=== PATIENT | female | born 1955 | race Caucasian/White ===

== ENCOUNTER 2025-08-03 10:07 | Outpatient (AMB) | payer BC, SELFPAY ==
--- NOTE | 2025-08-03 10:26 | MHC.PC.OV ---
Vital Signs 08/03/25 10:27 08/03/25 10:40 Height 5 ft 4.02 in Weight 163 lb 4 oz BMI 28.0 BP 148/68 H 160/68 H Blood Pressure Location Rt brachial Rt brachial Position Sitting Sitting Respiration 14 Pulse 103 H Pulse Source Pulse Oximeter Temp 98.3 F Temp Source Oral Pulse Oximetry (%) 97 Oxygen Delivery Method Room Air Intake Visit Reasons: ESTHETICIAN MAKEUP ARTIST-CPE Intake Note: New patient visit Joint Cutter Required: No Allergies No Known Allergies Allergy (Verified 08/03/25 10:27) Medication List - Last Reconciled 08/03/25 by Lori Babin PA-C cetirizine (Zyrtec) 10 mg PO DAILY metronidazole 1% (Metrogel) 1 appl topical DAILY multivitamin 1 tab PO DAILY Tobacco use date assessed: 08/03/25 Fall risk assessment: No Falls in past year Last assessed Fall Risk: 08/03/25 Dental Screening Dental Screen Date: 08/03/25 Did you have a dental visit in the last 12 months?: Yes Did you have a dental problem in the last 6 months where you did not have access to dental care?: No Was dental information given to patient?: Patient has dentist HPI ESTHETICIAN MAKEUP ARTIST-CPE HPI Details Pt is a 70 y/o female who presents today to establish care. She states she has not had health care in many, many years. States over 10 years. She did make a list of numerous concerns today to review HEENT: Reports a ringing in her ears that has been present for at least 10 years. No significant change. She would like to see someone for this. -reports that her eyes are watery at times. Wonders if it is related to allergies. States that she has a cat in that it has seemed to start around the time as the cat. Derm: Has a dry, flaky scalp and sometimes raised lesions. She uses selsun blue prn and uses it every 4-5 month. -She notices that her external ears are itchy and dry at times. -reports a lump on her left upper back. Noticed it about 3 months ago. Not sure if it has changed in size. She would like this removed. It is nontender. -history of rosacea and would like to see Dermatology for this -for many years she has noticed that her hair is thinning. No bald spots are scalp tenderness. Does not use heat products or chemicals Uro: States that for the last year so she has noticed sometimes she feels that she has to use the bathroom right away or may accidentally urinate herself. She states that she feels the urge and sometimes if she is not quick enough there is some mild incontinence. She tries to talk herself out of this. Has not noticed any dysuria or blood in the urine. No abdominal pain or flank pain. Did have a vaginal delivery in the past. She has not noticed any prolapses. CV: Blood pressure today in the office is 160/68. She states that when she is at the dentist or a place that she is less stressed out it seems to be normal. MSK: Reports feeling very stiff, tight and achy throughout her neck, mid back and low back. No radiation into the extremities. There was no trauma. This has been longstanding for many years but 1 of her main concerns today. States that she has a lot of muscle tension. She has not tried anything for this. There has been no trauma. No joint swelling or erythema. Mammo: overdue by 10 years ago Colonoscopy: over Pap: overdue Bone density: never had [facility] Surgical History (Updated 08/03/25 @ 10:42 by Betty Tejada CMA) History of cholecystectomy Social History (Updated 08/03/25 @ 10:43 by Betty Tejada CMA) Housing: Condominium Alcohol intake: current Patient Tobacco Use Status: Never used Tobacco e-Cigarette/Vaping Use: Never Used Second Hand Smoke Exposure: Yes (past) service: No Current occupational status: retired Current occupational exposures/hazards: No Cognitive needs: No Hearing needs: No Vision needs: Yes (glasses) Questionnaire PHQ-9 Over the last 2 weeks, how often have you been bothered by any of the following problems? 1. Little interest or pleasure in doing things: not at all 2. Feeling down, depressed, or hopeless: not at all 3. Trouble falling or staying asleep, or sleeping too much: not at all 4. Feeling tired or having little energy: not at all 5. Poor appetite or overeating: not at all 6. Feeling bad about yourself - or that you are a failure or have let yourself or your family down: not at all 7. Trouble concentrating on things, such as reading the newspaper or watching television: not at all 8. Moving or speaking so slowly that other people could have noticed. Or the opposite - being so fidgety or restless that you have been moving around a lot more than usual: not at all 9. Thoughts that you would be better off or of hurting yourself in some way: not at all Total score: 0 Depression Screening Interpretation: Negative Depression Screening Done: Yes 42276 - PHQ-9 Billing: Yes Source: Developed by Drs. Sky Faulkner, Gina Manzano, Cole Bonner and colleagues, with an educational alia from [employer]. Thrive Questionnaire Date Thrive assessed: 07/31/25 I am a: Patient What is your living situation today?: I have a steady place to live Within the past 12 months, did the food you bought not last and you didn't have the money to get more?: Never true Within the past 12 months, did you worry whether your food would run out before you got money to buy more?: Never true Do you have trouble paying for medicines?: No Do you have trouble getting transportation to medical appointments?: No Do you have trouble paying your heating and electricity bill?: No Do you have trouble taking care of your child, family member or friend?: No Do you have trouble with day-to-day activities such as bathing, preparing meals, shopping, managing finances, etc.?: No Are you currently unemployed and looking for a job?: No Are you interested in more education?: No Please select the resources that you would like help with: None Currently or been in a relationship where the following occur: No concerns reported THRIVE Score: 0 AUDIT C Alcohol Use Questionnaire (AUDIT-C) 1. How often do you have a drink containing alcohol?: 2-4 times a month 2. How many drinks containing alcohol do you have on a typical day when you are drinking?: 1 or 2 3. How often do you have six or more drinks on one occasion?: Never Total Score: 2 DAWIT-7 AMB Questionnaire DAWIT-7 Date DAWIT - 7 assessed: 08/03/25 Feeling nervous, anxious, or on edge: 3 = Nearly every day Not being able to stop or control worryin = Not at all Worrying too much about different things: 0 = Not at all Trouble relaxin = Nearly every day Being so restless that it is hard to sit still: 0 = Not at all Becoming easily annoyed or irritable: 0 = Not at all Feeling afraid as if something awful might happen: 0 = Not at all Total DAWIT-7 score (0-4 normal; 5-9 mild; 10-14 moderate; 15-21 severe): 6 Source: Developed by Drs. Sky Faulkner, Gina Manzano, Cole Bonner and colleagues, with an educational alia from [employer]. DAWIT-7 Assessment Billing DAWIT-7 Assessment Tool: DAWIT-7 Assessment 65722 Physical exam (Primary Care) Vital Signs: Last Vital Signs Temp 98.3 F 08/03/25 10:27 Pulse 103 H 08/03/25 10:27 Resp 14 08/03/25 10:27 BP 160/68 H 08/03/25 10:40 Pulse Ox 97 08/03/25 10:27 Oxygen Delivery Method Room Air 08/03/25 10:27 BMI result Body Mass Index 28.0 Tobacco/Smoking Status: Tobacco use Status Tobacco use date assessed 08/03/25 08/03/25 10:36 Patient Tobacco Use Status Never used Tobacco 08/03/25 10:43 e-Cigarette/Vaping Use Never Used 08/03/25 10:43 PHQ-9: PHQ-9 Score PHQ-9: Total score 0 08/03/25 10:49 Depression Screening Interpretation: Negative Thrive Assessment: Date of Thrive Assessment Date Thrive assessed 07/31/25 08/03/25 10:36 Currently or been in a relationship where the following occur: No concerns reported Const Orientation/consciousness: patient oriented x3 HENMT Ears: hearing grossly normal bilaterally, external ears normal (Dry flaky skin noted in the external ears) and TM's normal bilaterally General nose exam: Normal nasal mucous membranes and turbinates present Face and sinus: Yes sinuses nontender Mouth: Normal oral and palatal mucosa present Eyes General: appearance normal, both eyes and all related structures EOM: EOMs intact bilaterally Neck Thyroid: Thyroid normal Lymphatic: no lymphadenopathy noted Resp Auscultation: clear to auscultation bilaterally Cardio Rate: regular rate Rhythm: regular rhythm Heart sounds: S1 normal heart sound present and S2 normal heart sound present GI Inspection: Yes normal to inspection Palpation (GI): Soft to palpation and Other GI palpation findings present (nontender, no cva tenderness) Auscultation: normoactive bowel sounds Rectal Exam - Female: deferred Back/Spine/Pelvis Other: There is a golf ball sized firm, mobile lump noted on the left upper back. Skin General skin exam: no rashes or lesions noted Neuro General: patient oriented x3, gait normal and no focal motor deficits Coding Level of Care Code New Pt Level 5 (87759) Complex EM visit Add On G2211 Diagnoses Seborrheic dermatitis L21.9 Rosacea L71.9 Hair loss L65.9 Watery eyes H04.203 Urge incontinence of urine N39.41 Chronic neck and back pain M54.2; M54.9; G89.29 Bilateral tinnitus H93.13 Lump of skin of back R22.2 Elevated blood pressure reading without diagnosis of hypertension R03.0 Additional Codes DAWIT-7 Assessment Billing - DAWIT-7 Assessment Tool: DAWIT-7 Assessment 61302 ([id number]) PHQ-9 - 20852 - PHQ-9 Billing: Yes ([id number]) Assessment & Plan Assessment & Plan (1) Seborrheic dermatitis: Code(s): L21.9 - Seborrheic dermatitis, unspecified Category: Medical Plan: Advised to continue with Selsun blue as needed. Referral to Dermatology (2) Rosacea: Code(s): L71.9 - Rosacea, unspecified Category: Medical Plan: As above (3) Hair loss: Code(s): L65.9 - Nonscarring hair loss, unspecified Category: Medical Plan: Labs ordered today. We will follow up pending test results. I have referred her to Dermatology. (4) Watery eyes: Code(s): H04.203 - Unspecified epiphora, bilateral Category: Medical Plan: She will trial an antihistamine like Zyrtec. This was ordered for her today. 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 She does have routine eye exams (5) Urge incontinence of urine: Code(s): N39.41 - Urge incontinence Category: Medical Plan: Urine ordered Referral to urology Encouraged pelvic floor strengthening (6) Chronic neck and back pain: Code(s): M54.2 - Cervicalgia; M54.9 - Dorsalgia, unspecified; G89.29 - Other chronic pain Category: Medical Plan: Imaging of the neck and back ordered Referral to physical therapy OTC analgesics encouraged if needed I have encouraged regular stretching and massage (7) Bilateral tinnitus: Code(s): H93.13 - Tinnitus, bilateral Category: Medical Plan: Referral to ENT (8) Lump of skin of back: Code(s): R22.2 - Localized swelling, mass and lump, trunk Category: Medical Plan: Ultrasound ordered Referral to General surgery Discussed that it felt consistent with a lipoma. (9) Elevated blood pressure reading without diagnosis of hypertension: Code(s): R03.0 - Elevated blood-pressure reading, without diagnosis of hypertension Category: Medical Plan: Elevated above goal. Short term follow up ordered Plan I have ordered screening labs, testing as above and an order for a bone density, mammogram, service agent exam, colonoscopy screening I spent 75 minutes in [id number] time reviewing a list of her concerns, formulating a plan. Orders: Orders Complete Blood Count Auto Diff 08/03/25 N39.41 - Urge incontinence, R03.0 - Elevated blood-pressure reading, without diagnosis of hypertension, Z13.220 - Encounter for screening for lipoid disorders Comprehensive [place]. Panel Fast 08/03/25 N39.41 - Urge incontinence, R03.0 - Elevated blood-pressure reading, without diagnosis of hypertension, Z13.220 - Encounter for screening for lipoid disorders Microalbumin, Random (w Creat) 08/03/25 N39.41 - Urge incontinence, R03.0 - Elevated blood-pressure reading, without diagnosis of hypertension, Z13.220 - Encounter for screening for lipoid disorders XR lumbar spine 2-3V 08/03/25 M54.50 - Low back pain, unspecified XR cervical spine 3V 08/03/25 M54.2 - Cervicalgia XR thoracic spine 3V 08/03/25 M54.6 - Pain in thoracic spine MM screening mammo BI 08/03/25 G89.29 - Other chronic pain, M54.2 - Cervicalgia, M54.9 - Dorsalgia, unspecified, Z12.31 - Encounter for screening mammogram for malignant neoplasm of breast PT Evaluation and Treatment 08/03/25 G89.29 - Other chronic pain, M54.2 - Cervicalgia, M54.9 - Dorsalgia, unspecified XR DEXA axial skeleton 08/03/25 N95.1 - Menopausal and female climacteric states US chest 08/03/25 R22.2 - Localized swelling, mass and lump, trunk Lipid Panel 08/03/25 N39.41 - Urge incontinence, R03.0 - Elevated blood-pressure reading, without diagnosis of hypertension, Z13.220 - Encounter for screening for lipoid disorders Hemoglobin A1c 08/03/25 N39.41 - Urge incontinence, R03.0 - Elevated blood-pressure reading, without diagnosis of hypertension, R73.01 - Impaired fasting glucose, Z13.220 - Encounter for screening for lipoid disorders TSH reflex Free T4 08/03/25 N39.41 - Urge incontinence, R03.0 - Elevated blood-pressure reading, without diagnosis of hypertension, Z13.220 - Encounter for screening for lipoid disorders UA CC w/rflx Micro + Cult 08/03/25 N39.41 - Urge incontinence, R03.0 - Elevated blood-pressure reading, without diagnosis of hypertension, R30.0 - Dysuria, Z13.220 - Encounter for screening for lipoid disorders Referrals Dermatology Referral L21.9 - Seborrheic dermatitis, unspecified, L65.9 - Nonscarring hair loss, unspecified, L71.9 - Rosacea, unspecified, Z12.83 - Encounter for screening for malignant neoplasm of skin Urology Referral N39.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
[2025-08-03 10:27] VITALS: BP 148/68; PULSE 103; RESP 14; TEMP 36.8; O2SAT 97; BMI 28.0
[2025-08-03 10:40] VITALS: BP 160/68
== END 2025-08-03 11:22 | disposition home or self-care (01) ==
LOC: HO.HMCFM 10:08
PROVIDERS: PCP Physician Assistant; Visit Provider Physician Assistant
DX: M54.2 Cervicalgia (principal); L21.9 Seborrheic dermatitis, unspecified; L71.9 Rosacea, unspecified; L65.9 Nonscarring hair loss, unspecified; H04.203 Unspecified epiphora, bilateral; N39.41 Urge incontinence; M54.9 Dorsalgia, unspecified; G89.29 Other chronic pain; H93.13 Tinnitus, bilateral; R22.2 Localized swelling, mass and lump, trunk; R03.0 Elevated blood-pressure reading, without diagnosis of hypertension

== ENCOUNTER → 2025-08-03 10:07 | Outpatient (BNVA) | payer BC, SELFPAY | PROVIDERS: PCP Physician Assistant; Visit Provider Physician Assistant | DX: Z76.89 Persons encountering health services in other specified circumstances (principal); L21.9 Seborrheic dermatitis, unspecified; L71.9 Rosacea, unspecified; L65.9 Nonscarring hair loss, unspecified; H04.203 Unspecified epiphora, bilateral; N39.41 Urge incontinence; M54.2 Cervicalgia; M54.9 Dorsalgia, unspecified; G89.29 Other chronic pain; H93.13 Tinnitus, bilateral; R22.2 Localized swelling, mass and lump, trunk; R03.0 Elevated blood-pressure reading, without diagnosis of hypertension; Z13.31 Encounter for screening for depression; Z13.39 Encounter for screening examination for other mental health and behavioral disorders | CPT/HCPCS: 96127 ==

== ENCOUNTER 2025-08-22 09:55 | Outpatient (REF) | payer BC, SELFPAY ==
[2025-08-22 11:27] LABS: MANUAL DIFF FLAG NO
[2025-08-22 11:37] LABS: Appearance Urine Clear; Glucose Urine UA Negative (Negative); PH 7.5 (5.0-9.0); Specific Gravity - Urine <= 1.005 (1.005-1.025); UMIC TRIGGER UACC YES
[2025-08-22 12:09] LABS: Hemoglobin 14.1 g/dl (12.0-16.0); Red Blood Count 4.90 X10*6/uL (4.20-5.50); White Blood Count 6.0 X10*3/uL (4.8-10.8)
[2025-08-22 12:10] LABS: Hematocrit 44.1 % (37.0-47.0); Imm Gran Abs Auto 0.02 X10*3/uL (0.00-0.03); Imm Gran Pct Auto 0.3 % (0.0-0.4); Lymphocytes Absolute Auto 1.6 X10*3/uL (1.2-4.9); Mean Corpuscular HGB Conc 32.0 g/dl (31.0-35.0); Mean Corpuscular Hemoglobin 28.8 pg (27.0-33.0); Mean Corpuscular Volume 90.0 fL (80.0-98.0); NRBC Abs Auto 0.000 X10*3/uL (0.0-0.012); NRBC Pct Auto 0.0 /100WBC (0.0-0.2); Platelet Count 217 X10*3/uL (160-400)
[2025-08-22 12:50] LABS: Alanine Aminotransferase 27 U/L (0-31); Albumin Level 4.4 g/dL (3.5-5.0); Alkaline Phosphatase 87 U/L (39-117); Anion Gap 10 (12-20); Aspartate Amino Transferase 33 U/L (5-31); Blood Urea Nitrogen 13 mg/dL (9-16); Calcium 9.4 mg/dL (8.4-10.2); Carbon Dioxide 29 mmol/L (22-29); Chloride 108 mmol/L (96-108); Cholesterol 205 mg/dL (<200); Estimated Glomerular Filt Rate > 60; HDL Cholesterol 54 mg/dL (>40); Potassium 4.1 mmol/L (3.3-5.1); Sodium 143 mmol/L (135-145); Total Protein 7.1 g/dL (6.5-8.0); Triglycerides 199 mg/dL (<150)
== END 2025-08-22 09:56 | disposition home or self-care (01) ==
LOC: HO.WFDLDS 09:55
PROVIDERS: Visit Provider Physician Assistant
DX: Z13.220 Encounter for screening for lipoid disorders (principal); Z13.6 Encounter for screening for cardiovascular disorders; N39.41 Urge incontinence; R03.0 Elevated blood-pressure reading, without diagnosis of hypertension; R73.01 Impaired fasting glucose
CPT/HCPCS: 36415; 80053; 80061; 81001; 82043; 82570; 83036; 84443; 85025

== ENCOUNTER 2025-08-22 10:27 | Outpatient (REF) | payer BC, SELFPAY ==
--- NOTE | ~2025-08-22 | XR_ITS ---
EXAMINATION: Lumbar spine, thoracic spine and cervical spine. CLINICAL INDICATION: Pain. TECHNIQUE: Cervical spine 4 views, dorsal spine 3 views and lumbar spine 3 views. COMPARISON: None. FINDINGS: Cervical spine: There is maintained cervical lordosis. There is loss of C5-C6 and C6/7 disc height with ventral spondylosis C3-4, C4-5, C5-6 and C6 testis 7 disc levels. No visible acute fracture, dislocation or subluxation seen. Dorsal spine: There is normal thoracic kyphosis. Mild dextro mid dorsal spine is seen. No visible acute fracture, dislocation or lytic process seen. There is mild spondylosis dorsal spine. Lumbar spine: There is normal lumbar lordosis. The vertebral heights, alignment and disc heights are normal. No acute fracture, lytic or sclerotic process seen. SI joints are symmetrical. There is moderate constipation. XR/XR cervical spine 4V IMPRESSION: Degenerative disc changes with ventral spondylosis cervical spine. No acute fracture or dislocation seen. Mild dextroscoliosis mid dorsal spine with moderate spondylosis. No acute fracture or dislocation. Unremarkable lumbar spine exam. Electronically signed by: Ever Truong MD 08/22/2025 11:35 AM EDT
--- NOTE | ~2025-08-22 | XR_ITS ---
EXAMINATION: Lumbar spine, thoracic spine and cervical spine. CLINICAL INDICATION: Pain. TECHNIQUE: Cervical spine 4 views, dorsal spine 3 views and lumbar spine 3 views. COMPARISON: None. FINDINGS: Cervical spine: There is maintained cervical lordosis. There is loss of C5-C6 and C6/7 disc height with ventral spondylosis C3-4, C4-5, C5-6 and C6 testis 7 disc levels. No visible acute fracture, dislocation or subluxation seen. Dorsal spine: There is normal thoracic kyphosis. Mild dextro mid dorsal spine is seen. No visible acute fracture, dislocation or lytic process seen. There is mild spondylosis dorsal spine. Lumbar spine: There is normal lumbar lordosis. The vertebral heights, alignment and disc heights are normal. No acute fracture, lytic or sclerotic process seen. SI joints are symmetrical. There is moderate constipation. XR/XR thoracic spine 3V IMPRESSION: Degenerative disc changes with ventral spondylosis cervical spine. No acute fracture or dislocation seen. Mild dextroscoliosis mid dorsal spine with moderate spondylosis. No acute fracture or dislocation. Unremarkable lumbar spine exam. Electronically signed by: Ever Truong MD 08/22/2025 11:35 AM EDT
--- NOTE | ~2025-08-22 | XR_ITS ---
EXAMINATION: Lumbar spine, thoracic spine and cervical spine. CLINICAL INDICATION: Pain. TECHNIQUE: Cervical spine 4 views, dorsal spine 3 views and lumbar spine 3 views. COMPARISON: None. FINDINGS: Cervical spine: There is maintained cervical lordosis. There is loss of C5-C6 and C6/7 disc height with ventral spondylosis C3-4, C4-5, C5-6 and C6 testis 7 disc levels. No visible acute fracture, dislocation or subluxation seen. Dorsal spine: There is normal thoracic kyphosis. Mild dextro mid dorsal spine is seen. No visible acute fracture, dislocation or lytic process seen. There is mild spondylosis dorsal spine. Lumbar spine: There is normal lumbar lordosis. The vertebral heights, alignment and disc heights are normal. No acute fracture, lytic or sclerotic process seen. SI joints are symmetrical. There is moderate constipation. XR/XR lumbar spine 2-3V IMPRESSION: Degenerative disc changes with ventral spondylosis cervical spine. No acute fracture or dislocation seen. Mild dextroscoliosis mid dorsal spine with moderate spondylosis. No acute fracture or dislocation. Unremarkable lumbar spine exam. Electronically signed by: Ever Truong MD 08/22/2025 11:35 AM EDT
== END 2025-08-22 10:28 | disposition home or self-care (01) ==
LOC: HO.XRAY 10:27
PROVIDERS: PCP Physician Assistant; Visit Provider Physician Assistant
DX: M54.6 Pain in thoracic spine (principal); M54.50 Low back pain, unspecified; M54.2 Cervicalgia
CPT/HCPCS: 72050; 72072; 72100

== ENCOUNTER → 2025-08-22 10:32 | Outpatient (BNV) | payer BC, SELFPAY | PROVIDERS: PCP Physician Assistant; Visit Provider Radiology Diagnostic Radiology | DX: M50.322 Other cervical disc degeneration at C5-C6 level (principal); M54.50 Low back pain, unspecified; M47.814 Spondylosis without myelopathy or radiculopathy, thoracic region | CPT/HCPCS: 72050; 72072; 72100 ==

== ENCOUNTER 2025-10-02 14:26 | Outpatient (AMB) | payer BC, SELFPAY ==
--- NOTE | 2025-10-02 14:27 | A.OFFVIS_ITS ---
Vital Signs 3 10/02/25 14:34 Height 5 ft 4 in Weight 166 lb 2 oz BMI 28.5 BP 178/82 H Blood Pressure Location Lt brachial Position Sitting Pulse 94 Intake Visit Reasons: Lipoma on shoulder Intake Note: Patient is seen in office for evaluation of a lipoma on the left shoulder. 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 She 1st noted this approximately 3-4 months ago and feels the lesion has gradually decreased in size. She denies any pain, redness or discharge from the site. She feels the lesion may have been present longer but only noticed it 3-4 months ago. She denies any history of trauma or surgery in this location. [facility] Surgical History History of cholecystectomy Social History [facility] Alcohol intake: current Patient Tobacco Use Status: Never used Tobacco e-Cigarette/Vaping Use: Never Used Second Hand Smoke Exposure: Yes (past) service: No Current occupational status: retired Current occupational exposures/hazards: No Cognitive needs: No Hearing needs: No Vision needs: Yes (glasses) Review of Systems Const All systems reviewed & are unremarkable except as noted in HPI and below Physical Exam Vital Signs: Last Vital Signs Pulse 94 10/02/25 14:34 BP 178/82 H 10/02/25 14:34 BMI result Body Mass Index 28.5 Const General: cooperative and no acute distress Nutritional Appearance: well nourished Orientation/consciousness: patient oriented x3 Limitations: no limitations HEENT Head: Yes normocephalic and Yes atraumatic Ears: hearing grossly normal bilaterally Resp Effort & Inspection: normal respiratory effort, no audible wheezes, no cough and no respiratory distress Cardio Jugular venous distension: no JVD GI Inspection: Yes normal to inspection Back/Spine/Pelvis Other: Area of dermal thickening in the right posterior shoulder with a central punctum suggestive of an epidermal inclusion cyst. No evidence of fluctuance or discharge. No definite lipoma identified to examination. Back/spine/pelvis image: 2 1. Area of swelling measuring approximately 2 cm in diameter, nontender to palpation. No skin redness or fluctuance appreciated. Findings suggestive of an epidermal inclusion cyst. Skin Other: Warm, dry, no rash Neuro General: patient oriented x3 Extrem General: Yes no clubbing, cyanosis or edema Assessment & Plan Assessment & Plan (1) Epidermal inclusion cyst: Code(s): L72.0 - Epidermal cyst Category: Medical Plan 70-year-old female patient presenting for evaluation of a lump in the left posterior shoulder 1st noted approximately 4 months ago. She feels a lump has decreased in size since then in his not associated with any bleeding, discharge, or pain. On examination there does appear to be a 2 cm area of thickening of the skin suggestive of a epidermal inclusion cyst. We discussed excision of this lesion along with the risks and benefits. As the lesion is not causing any symptoms at this time she wishes to hold off on surgery. I recommended she call the office should the lesion become more symptomatic. Coding Level of Care Code New Pt Level 4 (08961) Diagnoses Epidermal inclusion cyst L72.0
[2025-10-02 14:34] VITALS: BP 178/82; PULSE 94; BMI 28.5
== END 2025-10-02 14:52 | disposition home or self-care (01) ==
LOC: HO.HGS 14:26
PROVIDERS: PCP Physician Assistant; Referring Provider Physician Assistant; Visit Provider Surgery
DX: L72.0 Epidermal cyst (principal)
CPT/HCPCS: 99204

== ENCOUNTER 2025-10-04 11:46 | Outpatient (AMB) | payer BC, SELFPAY ==
--- NOTE | 2025-10-04 11:56 | A.OFFPC_ITS ---
Vital Signs 10/04/25 11:57 10/04/25 12:01 Height 5 ft 4 in Weight 167 lb 8 oz BMI 28.7 BP 144/84 H 138/76 Blood Pressure Location Rt brachial Rt brachial Position Sitting Sitting Respiration 16 Pulse 81 Pulse Source Pulse Oximeter Pulse Oximetry (%) 98 Oxygen Delivery Method Room Air Intake Visit Reasons: bp check Intake Note: Blood pressure follow up Claim Technician Required: No Allergies No Known Allergies Allergy (Verified 10/04/25 11:58) Medication List - Last Reconciled 10/04/25 by Lori Babin PA-C cetirizine (Zyrtec) 10 mg PO DAILY metronidazole 1% (Metrogel) 1 appl topical DAILY multivitamin 1 tab PO DAILY propylene glycol 0.6% (Systane Complete) 1 drp ophthalmic (eye) DAILY PRN triamcinolone acetonide 0.025% 1 appl topical BID 7 days Tobacco use date assessed: 10/04/25 Fall risk assessment: No Falls in past year Last assessed Fall Risk: 10/04/25 Dental Screening Dental Screen Date: 08/03/25 HPI bp check HPI Details Pt is a 70 y/o female who presents today for a follow up. HEENT: Reports a ringing in her ears that has been present for at least 10 years. She was referred to ENT No significant change. She would like to see someone for this. Derm: Has an appointment soon with Dermatology. The symptoms of the itchy and flaky ears resolved with the triamcinolone cream. She has been using this as needed. She has not tried the Metrogel for her rosacea yet. Uro: Following with Urology and working on pelvic floor strengthening for her urinary symptoms CV: Blood pressure today in the office is 138/76. Her blood pressures are usually elevated in doctor's offices but normal at home or at the dentist. MSK: Reports feeling very stiff, tight and achy throughout her neck, mid back and low back. No radiation into the extremities. There was no trauma. This has been longstanding for many years but 1 of her main concerns today. States that she has a lot of muscle tension. She did have x-rays. There has been no trauma. No joint swelling or erythema. She would like to see physical therapy. Mammo: overdue by 10 years ago, scheduled 11/16/25 Colonoscopy: overdue, scheduled for consult 12/08/25 Pap: overdue, scheduled in 2025 Bone density: never had, scheduled 11/16/25 [facility] Surgical History History of cholecystectomy Social History Housing: Condominium Alcohol intake: current Patient Tobacco Use Status: Never used Tobacco e-Cigarette/Vaping Use: Never Used Second Hand Smoke Exposure: Yes (past) service: No Current occupational status: retired Current occupational exposures/hazards: No Cognitive needs: No Hearing needs: No Vision needs: Yes (glasses) Questionnaire Thrive Questionnaire Date Thrive assessed: 07/31/25 I am a: Patient What is your living situation today?: I have a steady place to live Within the past 12 months, did the food you bought not last and you didn't have the money to get more?: Never true Within the past 12 months, did you worry whether your food would run out before you got money to buy more?: Never true Do you have trouble paying for medicines?: No Do you have trouble getting transportation to medical appointments?: No Do you have trouble paying your heating and electricity bill?: No Do you have trouble taking care of your child, family member or friend?: No Do you have trouble with day-to-day activities such as bathing, preparing meals, shopping, managing finances, etc.?: No Are you currently unemployed and looking for a job?: No Are you interested in more education?: No Please select the resources that you would like help with: None Currently or been in a relationship where the following occur: No concerns reported THRIVE Score: 0 AUDIT C Alcohol Use Questionnaire (AUDIT-C) 1. How often do you have a drink containing alcohol?: Monthly or less 2. How many drinks containing alcohol do you have on a typical day when you are drinking?: 1 or 2 3. How often do you have six or more drinks on one occasion?: Never Total Score: 1 DAWIT-7 AMB Questionnaire DAWIT-7 Date DAWIT - 7 assessed: 08/03/25 Source: Developed by Drs. Sky Faulkner, Gina Manzano, Cole Bonner and colleagues, with an educational laia from [employer]. Physical exam (Primary Care) Vital Signs: Last Vital Signs Pulse 81 10/04/25 11:57 Resp 16 10/04/25 11:57 BP 138/76 10/04/25 12:01 Pulse Ox 98 10/04/25 11:57 Oxygen Delivery Method Room Air 10/04/25 11:57 BMI result Body Mass Index 28.7 Tobacco/Smoking Status: Tobacco use Status Tobacco use date assessed 10/04/25 10/04/25 12:03 Patient Tobacco Use Status Never used Tobacco 10/04/25 12:03 e-Cigarette/Vaping Use Never Used 10/04/25 12:03 Thrive Assessment: Date of Thrive Assessment Date Thrive assessed 07/31/25 10/04/25 12:03 Currently or been in a relationship where the following occur: No concerns reported Const Orientation/consciousness: patient oriented x3 HENMT Ears: hearing grossly normal bilaterally Neck Thyroid: Thyroid normal Lymphatic: no lymphadenopathy noted Resp Auscultation: clear to auscultation bilaterally Cardio Rate: regular rate Rhythm: regular rhythm Heart sounds: S1 normal heart sound present and S2 normal heart sound present GI Inspection: Yes normal to inspection Palpation (GI): Soft to palpation and Other GI palpation findings present (nontender, no cva tenderness) Auscultation: normoactive bowel sounds Rectal Exam - Female: deferred Skin General skin exam: no rashes or lesions noted Neuro General: patient oriented x3, gait normal and no focal motor deficits Results Reviewed Results Reviewed: Laboratory Tests 08/22/25 10:00 WBC 6.0 RBC 4.90 Hgb 14.1 Hct 44.1 Plt Count 217 Sodium 143 Potassium 4.1 Chloride 108 Carbon Dioxide 29 Anion Gap 10 L BUN 13 Creatinine 0.67 Estimated GFR > 60 Fasting Glucose 90 Hemoglobin A1c % 5.6 AST 33 H ALT 27 Alkaline Phosphatase 87 Total Protein 7.1 Albumin 4.4 Triglycerides 199 H Cholesterol 205 H LDL Cholesterol, Calc 112 H HDL Cholesterol 54 Coding Level of Care Code Est Pt Level 4 (42899) Complex visit Add On G2211 Diagnoses Chronic neck and back pain M54.2; M54.9; G89.29 Dyslipidemia E78.5 Elevated blood pressure reading without diagnosis of hypertension R03.0 Assessment & Plan Assessment & Plan (1) Chronic neck and back pain: Code(s): M54.2 - Cervicalgia; M54.9 - Dorsalgia, unspecified; G89.29 - Other chronic pain Category: Medical Plan: Referral to PT (2) Dyslipidemia: Code(s): E78.5 - Hyperlipidemia, unspecified Category: Medical Plan: We discussed last labs and elevated LFTs and lipids. We will recheck labs in a few months with some dietary changes. (3) Elevated blood pressure reading without diagnosis of hypertension: Code(s): R03.0 - Elevated blood-pressure reading, without diagnosis of hypertension Category: Medical Plan: Better today. We will continue watching this and follow up in a few months Orders: Orders PT Evaluation and Treatment Today G89.29 - Other chronic pain, M54.2 - Cervicalgia, M54.9 - Dorsalgia, unspecified
[2025-10-04 11:57] VITALS: BP 144/84; PULSE 81; RESP 16; O2SAT 98; BMI 28.7
[2025-10-04 12:01] VITALS: BP 138/76
== END 2025-10-04 12:24 | disposition home or self-care (01) ==
LOC: HO.HMCFM 11:47
PROVIDERS: PCP Physician Assistant; Visit Provider Physician Assistant
DX: M54.2 Cervicalgia (principal); M54.9 Dorsalgia, unspecified; G89.29 Other chronic pain; E78.5 Hyperlipidemia, unspecified; R03.0 Elevated blood-pressure reading, without diagnosis of hypertension

== ENCOUNTER 2025-11-06 13:06 | Outpatient (REF) | payer MEDICARE, SELFPAY ==
--- NOTE | ~2025-11-06 | US_ITS ---
EXAMINATION: US CHEST SOFT TISSUE CLINICAL INFORMATION: Palpable painful lump left upper back which has since resolved. Patient states physician felt lump in July 2025, however it has gone away COMPARISON: None available. TECHNIQUE: Grayscale and color Doppler ultrasound imaging of the left upper back was performed into the shoulder, concentrating on the region of palpable concern as indicated by the patient. FINDINGS: There is a ill-defined hypoechoic oval area arising from the dermis, with possible associated calcification within, avascular on color Doppler imaging, with an apparent hypoechoic tract into the dermis. There is localized dermal thickening at the level of this lesion. This hypoechoic abnormality measures 8 x 5 x 5 mm. This is most likely the residua of a sebaceous cyst which was previously inflamed or infected. There is no additional abnormality present. US/US soft tissue chest IMPRESSION: 1. In the region of previous concern, there is a dermal-based hypoechoic avascular 8 x 5 x 5 mm abnormality, likely representing residua of a previously infected/inflamed sebaceous cyst. Electronically signed by: Rubén Miranda MD 11/06/2025 01:58 PM [facility]
== END 2025-11-06 13:07 | disposition home or self-care (01) ==
LOC: HO.US 13:06
PROVIDERS: PCP Physician Assistant; Visit Provider Physician Assistant
DX: R22.2 Localized swelling, mass and lump, trunk (principal)
CPT/HCPCS: 76604

== ENCOUNTER → 2025-11-06 13:08 | Outpatient (BNV) | payer MEDICARE, SELFPAY | PROVIDERS: PCP Physician Assistant; Visit Provider Radiology Diagnostic Radiology | DX: R22.2 Localized swelling, mass and lump, trunk (principal) | CPT/HCPCS: 76604 ==